=== PATIENT | male | born 1940 | race Caucasian/White ===

== ENCOUNTER 2018-03-13 18:50 | Emergency (ER) | payer MEDICARE ==
--- NOTE | 2018-03-13 19:51 | RAD ---
Indication: LEFT shoulder pain post fall. Comparison: No relevant prior exams available on the [facility] PACS for comparison. Technique: Internal rotation AP, external rotation Grashey, scapular Y, axillary views LEFT shoulder. AP and cephalad oblique views LEFT clavicle. Report: Negative for fracture at the clavicle or shoulder. Normal sternoclavicular, acromioclavicular, and glenohumeral joint alignment. Mild osteophytosis and subchondral sclerosis at the AC joint. Mild osteophytic lipping at the glenohumeral joint. Negative for calcific tendinopathy or abnormal soft tissue contour. IMPRESSION: No radiographic evidence for traumatic clavicle or shoulder injury. Mild acromioclavicular and glenohumeral joint osteoarthritis.
--- NOTE | 2018-03-13 19:51 | RAD ---
Indication: LEFT shoulder pain post fall. Comparison: No relevant prior exams available on the [facility] PACS for comparison. Technique: Internal rotation AP, external rotation Grashey, scapular Y, axillary views LEFT shoulder. AP and cephalad oblique views LEFT clavicle. Report: Negative for fracture at the clavicle or shoulder. Normal sternoclavicular, acromioclavicular, and glenohumeral joint alignment. Mild osteophytosis and subchondral sclerosis at the AC joint. Mild osteophytic lipping at the glenohumeral joint. Negative for calcific tendinopathy or abnormal soft tissue contour. IMPRESSION: No radiographic evidence for traumatic clavicle or shoulder injury. Mild acromioclavicular and glenohumeral joint osteoarthritis.
--- NOTE | 2018-03-13 20:14 | ED ---
Upper Extremity Pain - HPI Summary HPI Summary: 78-year-old male presents with left shoulder pain today. He states that he and fell onto his left shoulder. Has limited range of motion shoulder. Says when he tries to lift it up his shoulder just drops. No history of issues with the shoulder. No numbness or tingling. Denies any other injury. No head injury or loss conscious. Is not on blood thinners. No wrist or elbow pain. Is able to ambulate. Hasnt taken anything for pain. Has multiple allergies. Is able to take Tylenol. - History of Current Complaint Chief Complaint: EDExtremityUpper Stated Complaint: LEFT SHOULDER INJURY Time Seen by Provider: 03/13/18 19:05 - Allergies/Home Medications Allergies/Adverse Reactions: Allergies Allergy/AdvReac Type Severity Reaction Status Date / Time acetaminophen [From Percocet] Allergy Itching Verified 03/13/18 19:01 bee venom protein (honey bee) Allergy Swelling Verified 03/13/18 19:01 codeine Allergy Itching Verified 03/13/18 19:01 oxycodone [From Percocet] Allergy Itching Verified 03/13/18 19:01 ibuprofen AdvReac Vomiting Verified 03/13/18 19:01 nabumetone [From Relafen] AdvReac Nausea And Verified 03/13/18 19:01 Vomiting PMH/Surg Hx/FS Hx/Imm Hx Endocrine/Hematology History: Denies: Hx Anticoagulant Therapy Cardiovascular History: Reports: Hx Hypertension Infectious Disease History: No Infectious Disease History: Denies: Traveled Outside the [place] in Last 30 Days - Family History Known Family History: Positive: Hypertension - Social History Alcohol Use: Occasionally Substance Use Type: Reports: None Smoking Status (MU): Never Smoked Tobacco Review of Systems Negative: Fever Negative: Chest Pain Negative: Shortness Of Breath Positive: Myalgia - left shoulder All Other Systems Reviewed And Are Negative: Yes Physical Exam Triage Information Reviewed: Yes Vital Signs On Initial Exam: Initial Vitals Temp Pulse Resp BP Pulse Ox 98.1 F 63 18 133/96 96 03/13/18 18:56 03/13/18 18:56 03/13/18 18:56 03/13/18 18:56 03/13/18 18:56 Vital Signs Reviewed: Yes Appearance: Positive: Well-Appearing Skin: Positive: Warm, Dry Head/Face: Positive: Normal Head/Face Inspection Eyes: Positive: Normal, Conjunctiva Clear Respiratory/Lung Sounds: Positive: Clear to Auscultation, Breath Sounds Present Cardiovascular: Positive: Normal, RRR Musculoskeletal: Positive: Strength/ROM Intact, Other - tenderness left shoulder , pos drop arm, good pulses, Neurological: Positive: Normal Psychiatric: Positive: Normal Diagnostics - Vital Signs Vital Signs Temp Pulse Resp BP Pulse Ox 03/13/18 18:56 98.1 F 63 18 133/96 96 - Laboratory Lab Statement: Any lab studies that have been ordered have been reviewed, and results considered in the medical decision making process. - Radiology shoulder Xray Interpretation: No Acute Changes Radiology Interpretation Completed By: Radiologist Course/Dx - Course Course Of Treatment: 78-year-old male presents with left shoulder pain today. He states that he and fell onto his left shoulder. Has limited range of motion shoulder. Says when he tries to lift it up his shoulder just drops. No history of issues with the shoulder. No numbness or tingling. Denies any other injury. No head injury or loss conscious. Is not on blood thinners. No wrist or elbow pain. Is able to ambulate. Hasnt taken anything for pain. Has multiple allergies. Is able to take Tylenol. On exam tenderness over left shoulder. Neurovascular intact. Has positive drop arm. X-ray normal. We'll give sling and have follow-up with orthopedic. Patient understands agrees with plan. - Diagnoses Differential Diagnosis/HQI/PQRI: Positive: Fracture (Closed), Strain, Sprain Provider Diagnoses: Injury of left shoulder Discharge - Sign-Out/Discharge Documenting (check all that apply): Discharge/Admit/Transfer - Discharge Plan Condition: Good Disposition: HOME Patient Education Materials: Shoulder Pain (ED) Referrals: Soha Sosa MD [Medical Doctor] - Naomie Penn MD [Primary Care Provider] - Additional Instructions: Take Tylenol and ibuprofen every 6 hours as needed for pain Ice/heat Can rest for one day and then need to do range of motion activities for shoulder Follow up with ortho if no improvement Return to ED if develop any new or worsening symptoms - Billing Disposition and Condition Condition: GOOD Disposition: Home
[2018-03-13 20:59] VITALS: BP 146/84
== END 2018-03-13 20:59 | disposition home or self-care (01) ==
LOC: ED 18:50
DX: S49.92XA Unspecified injury of left shoulder and upper arm, initial encounter (principal); W19.XXXA Unspecified fall, initial encounter; Y92.9 Unspecified place or not applicable; M19.012 Primary osteoarthritis, left shoulder; Z88.5 Allergy status to narcotic agent; Z88.6 Allergy status to analgesic agent
CPT/HCPCS: 99282

== ENCOUNTER 2018-04-21 11:53 | Day surgery (SDC) | payer MEDICARE ==
[~2018-04-21 11:53] MED LIST: Buffered Lidocaine 0.9% SYRIN* 5 ML/SYR SYRINGE INTRADERM ONE
[2018-04-21] MEDS ORDERED: ceFAZolin 2 GM PREMIX (*) 2 GM/50 ML BAG IVPB ONE (12:02)
[2018-04-21] MEDS ORDERED: Bupivacaine 0.5% PF 10 ML VIAL INJ ONE (13:24)
[2018-04-21] MEDS ORDERED: EPINEPHRINE 1 MG/ML 1 ML VIAL ONE (13:32)
[2018-04-21] MEDS ORDERED: Lidocaine 2% PF * 5 ML VIAL ONE (13:44)
[2018-04-21] MEDS ORDERED: Propofol* 10 MG/ML 20 ML BTL IV PUSH ONE (13:44)
[2018-04-21] MEDS ORDERED: Midazolam* 1 MG/ML 2 ML VIAL (2 MG) ONE (13:45)
[2018-04-21] MEDS ORDERED: Rocuronium* 10 MG/ML VIAL ONE (13:45)
[2018-04-21] MEDS ORDERED: fentaNYL* 50 MCG/ML 2 ML VIAL (100 MCG VIAL) ONE (13:45)
[2018-04-21] MEDS ORDERED: ROPIVACAINE 5 MG/ML 30 ML BTL (0.5%) ONE (13:59)
[2018-04-21] MEDS ORDERED: Lidocaine 2% PF* 10 ML AMP ONE (13:59)
[2018-04-21] MEDS ORDERED: Dexamethasone IV* 4 MG/ML 1 ML (4 MG) ONE (15:03)
[2018-04-21] MEDS ORDERED: Naloxone* 0.4 MG/ML 1 ML VIAL IV PRN (15:55)
[2018-04-21] MEDS ORDERED: Acetaminophen IV 1GM/100ML * 1,000 MG/100 ML VIAL IVPB ONE (15:55)
[2018-04-21] MEDS ORDERED: Ondansetron INJ* 2 MG/ML VIAL ONE (17:05)
[2018-04-21] MEDS ORDERED: HYDROmorphone INJ* 0.5 MG/0.5 ML SYRINGE ONE ×3 (17:05→18:16)
[2018-04-21] MEDS ORDERED: Acetaminophen IV 1GM/100ML * 100 ML ONE (17:51)
[2018-04-21] MEDS: HYDROmorphone INJ* 0.5 MG/0.5 ML SYRINGE IV PRN ×3 (17:53→18:21)
[2018-04-21 19:18] VITALS: BP 134/67
--- NOTE | 2018-04-24 02:26 | OP ---
DATE OF OPERATION: 04/21/18 - [facility] DATE OF : 38 SURGEON: Thomas Tyler MD FIELD CARE ADVOCATE: None. ANESTHESIOLOGIST: Margy Burnette DO. ANESTHESIA: General anesthesia, regional interscalene block anesthesia. PRE-OP DIAGNOSES: 1. Left shoulder rotator cuff tendon tear, full thickness, supraspinatus, infraspinatus. 2. Left shoulder subacromial impingement and AC joint arthritis. 3. Possible loose body, left shoulder. 4. Possible tendinopathy or partial tearing long head biceps tendon, left shoulder. POST-OP DIAGNOSES: 1. Left shoulder rotator cuff tendon tear, full thickness, supraspinatus, infraspinatus. 2. Left shoulder subacromial impingement and AC joint arthritis. 3. Possible loose body, left shoulder. 4. Partial tearing and tendinopathy, long head biceps tendon, left shoulder. OPERATIVE PROCEDURES: 1. Left shoulder arthroscopic rotator cuff tendon repair, supraspinatus, infraspinatus, double row. 2. Left shoulder arthroscopic subacromial decompression. 3. Left shoulder arthroscopic distal clavicle resection. 4. Left shoulder arthroscopic release of biceps tendon, long head. ANTIBIOTICS: Ancef 2 g IV. IV FLUIDS: 1000 cc crystalloid. SKIN TO SKIN TIME: 119 minutes. FLUIDS: Arthroscopic fluid utilization: 14 bags of 3 L for a total of 42 L. SPECIMEN: None. COMPLICATIONS: None. IMPLANTS: Two Mitek Alfred and Alfred Healix 5.5 mm triple loaded suture anchors, one knotless Mitek Healix suture anchor 5.5 mm. INDICATIONS FOR PROCEDURE: The patient is a 78-year-old man, right-hand dominant, who had a fall, 03/13/18 with a pop, significant pain and a history and exam consistent with an acute rotator cuff tear, which was confirmed by MRI. MRI was also concerning as it was examined for biceps tendon pathology as well as degenerative changes of the undersurface acromion and AC joint. The patient opted for surgery. Discussed and potential complications of surgery including bleeding, infection, nerve or blood vessel injury, rotator cuff tendon retear, shoulder pain, stiffness, osteoarthritis. DESCRIPTION OF PROCEDURE: Preoperatively, the patient signed a written consent. Operative extremity was marked in preop holding. The patient was taken back to the operating room and placed supine on operating room table. The patient had had interscalene block for regional anesthesia, applied by Anesthesia. The patient was sedated and intubated. The patient was then transferred into the lateral decubitus position with the left shoulder up. Axillary roll placed. Calvo bag hardened, all bony prominences padded. Longitudinal traction included the appropriate amount of abduction and forward flexion. The left shoulder was prepped and draped. Surgical time-out was performed. Infused 30 cc of normal saline into the glenohumeral joint from posterior. Established posterior glenohumeral joint portal. Started my diagnostic arthroscopy. The patient had a clear full thickness, supraspinatus, infraspinatus rotator cuff tendon tear. Visualization was not great when I was in the glenohumeral joint. The patient had some minimal bleeding. Identified the long head biceps tendon. It looked as though it was only half of the appropriate thickness indicating a partial tear. The remaining tendon was very frayed. I established an anterior glenohumeral joint portal under direct visualization. I entered an arthroscopic shaver to debride some bleeding. I then released the biceps tendon from its origin. No subscapularis tendon tear appreciated. I then probed subcoracoid with a switching stick. I did not encounter any clear loose body that was easily accessible. I had visualized one on preoperative MRI, but the patient did not complain of any mechanical symptoms preoperatively. With the patient's known proclivity to bleed given his history of an endoscopic cholecystectomy having been converted to open and slightly impaired visibility in the glenohumeral joint, I did not want to be overtly aggressive going after that loose body. So, I stopped at that. I removed instruments and fluids from the glenohumeral joint and established anterior and posterior subacromial portals. I established a lateral subacromial portal under direct visualization. I debrided subacromial bursa tissue. I debrided the end of the rotator cuff tendon tear. I used a grasper to make sure they would reduce nicely. It was crescent in shape, minimally retracted. I cleared off the humeral head using a VAPR and a shaver and then an arthroscopic conner to improve my healing surface. I performed a subacromial decompression with the arthroscopic conner to flatten out spurs. I established a posterolateral portal under direct visualization to improve visualization. I next placed an Arthrex 7 mm pole through my lateral portal. I already had one in the anterior portal. I made stab incisions superolaterally to place 2 medial row anchors, one for the supraspinatus tendon and the other for the infraspinatus tendon. I passed stitches into the rotator cuff tendon using a Salas and Nephew suture passer. With the first anchor sutures, I placed 3 horizontal mattress stitches. With the second anchor stitches, I placed 2 horizontal mattress stitches and 1 simple stitch. The simple stitch being restitched in the middle. I passed all sutures before time with the first anchor. I tied as I went slightly with the second more posterior anchor. This brought tendon nicely to bone. I took 4 sutures from the anterior most 4 anchors and placed them into a lateral row anchor. I used a free stitch from the lateral row anchor to place one additional horizontal mattress stitch into the more posterior tissue between stitches from the medial row. I liked my repair, it was stable. I then addressed the AC joint. I debrided synovitic tissue with the VAPR and then debrided 8 mm to the distal end of the clavicle with an arthroscopic conner. Fluid and instruments were removed from the subacromial space. Skin incisions were closed with [id number] and 12 stitches using nylon 3-0 suture. Xeroform, 4 x 4's, ABDs, foam tape. Sling and abduction pillow. Cooling unit. The patient was awakened, extubated and taken to the PACU. DISPOSITION: The patient will start physical therapy immediately. Percocet p.r.n., Keflex x3 days, aspirin x2 weeks postoperatively. Wound care instructions provided. [id number]/CPS #: [id number] [facility]
== END 2018-04-21 20:06 | disposition home or self-care (01) ==
LOC: OR 11:53
PROVIDERS: ATTEND Orthopaedic Surgery
DX: S46.012A Strain of muscle(s) and tendon(s) of the rotator cuff of left shoulder, initial encounter (principal); M75.42 Impingement syndrome of left shoulder; M19.112 Post-traumatic osteoarthritis, left shoulder; M75.22 Bicipital tendinitis, left shoulder; W17.89XA Other fall from one level to another, initial encounter; Y92.9 Unspecified place or not applicable; K21.9 Gastro-esophageal reflux disease without esophagitis; I10 Essential (primary) hypertension; J30.2 Other seasonal allergic rhinitis; E78.5 Hyperlipidemia, unspecified; Z87.891 Personal history of nicotine dependence; G89.18 Other acute postprocedural pain
CPT/HCPCS: J0690; J1100; J1170; J2001; J2250; J2405; J2704; J2795; J3010